=== PATIENT | female | born 2000 | race Caucasian/White ===

== ENCOUNTER 2023-01-16 05:39 | Day surgery (SDC) | payer OTHER ==
[~2023-01-16] VITALS: Ht 157.5 cm; Wt 51.7 kg
== END 2023-01-16 12:30 | disposition home or self-care (01) ==
LOC: CIR.AMB 05:39
PROVIDERS: ATTEND Surgery
DX: D24.2 Benign neoplasm of left breast (principal); N60.22 Fibroadenosis of left breast; N62 Hypertrophy of breast; I10 Essential (primary) hypertension; Z20.822 Contact with and (suspected) exposure to COVID-19; D64.9 Anemia, unspecified; D68.9 Coagulation defect, unspecified